=== PATIENT | male | born 1935 | race Caucasian/White ===

== ENCOUNTER 2025-05-28 17:54 | Inpatient (IN) ==
[2025-05-28 18:55] LABS: Basophils # (Auto) 0.03 K/mcL (0.00-0.30); Basophils % (Auto) 0.2 % (0.0-2.0); Eosinophils # (Auto) 0.03 K/mcL (0.00-0.70); Eosinophils % (Auto) 0.2 % (0.0-7.0); Hematocrit 33.4 % (40.1-51.0); Hemoglobin 10.9 g/dL (13.7-17.5); Lymphocytes # (Auto) 1.05 K/mcL (1.50-4.80); Lymphocytes % (Auto) 7.0 % (15.5-49.0); Mean Corpuscular HGB Conc 32.6 g/dL (31.0-36.0); Monocytes # (Auto) 0.73 K/mcL (0.10-0.90); Monocytes % (Auto) 4.9 % (1.0-12.0); Neutrophils % (Auto) 87.2 % (38.0-78.0); Platelet Count 318 K/mcL (140-440); RBC 3.44 M/mcL (4.63-6.08); WBC 15.0 K/mcL (4.5-11.0)
[2025-05-28] MEDS: ACETAMINOPHEN 325 MG TABLET PO ONE (19:00)
[2025-05-28] MEDS: 0.9 % SODIUM CHLORIDE 1,000 ML IV ONE (19:00)
[2025-05-28 19:11] LABS: ALT/SGPT 27 U/L (<40); AST/SGOT 24 U/L (<40); Albumin 3.6 gm/dL (3.2-5.2); Albumin/Globulin Ratio 1.1 (1.0-2.3); Alkaline Phosphatase 168 U/L (39-117); Anion Gap 13.0 (8.0-16.0); Bilirubin,Total 0.5 mg/dL (0.1-1.0); Blood Urea Nitrogen 21 mg/dL (8-23); Calcium 8.9 mg/dL (8.6-10.4); Carbon Dioxide 21 mmol/L (22-30); Chloride 101 mmol/L (96-108); Globulin 3.2 gm/dL (2.2-3.7); Glucose 133 mg/dL (70-105); Potassium 4.4 mmol/L (3.3-5.1); Sodium 135 mmol/L (133-145)
[2025-05-28] MEDS: cefTRIAXone 1 GM in DEXTROSE 5% IN WATER 50 ML IV SCH (19:20)
[2025-05-28 21:44] LABS: Bacteria,Urine Many /hpf (0); Bilirubin,Urine Negative (Negative); Color,Urine Red; Glucose,Urine (UA) Negative (Negative); Ketones,Urine Negative (Negative); Leukocyte Esterase,Urine Small /uL (Negative); PH,Urine 5.5 (5.0-9.0); Protein,Urine >=300 mg/dL (Negative); Specific Gravity,Urine 1.020 (1.000-1.035); Urobilinogen,Urine Normal
[2025-05-28] MEDS ORDERED: ONDANSETRON 4 MG/2 ML VIAL IV PRN (23:02)
[2025-05-28] MEDS ORDERED: IPRATROPIUM/ALBUTEROL 3 ML AMPUL.NEB NEB PRN (23:02)
[2025-05-29] MEDS: 0.9 % SODIUM CHLORIDE 1,000 ML IV SCH
[2025-05-29] MEDS: ACETAMINOPHEN 325 MG TABLET PO PRN ×2 (06:08→14:49)
[2025-05-29] MEDS ORDERED: POTASSIUM CHLORIDE 40 MEQ in DEXTROSE 5% IN WATER 500 ML IV PRN (07:59)
[2025-05-29] MEDS ORDERED: MAGNESIUM SULFATE 2 GM/50 ML BAG IV PRN (07:59)
[2025-05-29] MEDS ORDERED: POLYETHYLENE GLYCOL 3350 17 GM PACKET PO PRN (07:59)
[2025-05-29] MEDS ORDERED: SENNOSIDES 1 TABLET PO PRN (07:59)
[2025-05-29] MEDS ORDERED: POTASSIUM CHLORIDE 20 MEQ TABLET PO PRN ×2 (07:59)
[2025-05-29] MEDS ORDERED: METOCLOPRAMIDE 10 MG/2 ML VIAL IV PRN (07:59)
[2025-05-29] MEDS ORDERED: IPRATROPIUM/ALBUTEROL 3 ML AMPUL.NEB NEB PRN (07:59)
[2025-05-29] MEDS ORDERED: ONDANSETRON 4 MG/2 ML VIAL IV PRN (07:59)
[2025-05-29] MEDS: DOCUSATE SODIUM 100 MG CAPSULE PO SCH (08:57)
[2025-05-29] MEDS: OMEPRAZOLE 20 MG CAPSULE PO SCH (08:58)
[2025-05-29] MEDS: TAMSULOSIN 0.4 MG CAPSULE PO SCH (08:58)
[2025-05-29] MEDS: ENOXAPARIN 40 MG/0.4 ML SYRINGE SQ SCH (08:58)
[2025-05-29] MEDS: FINASTERIDE 5 MG TABLET PO SCH (08:58)
[2025-05-29] MEDS: ASPIRIN 81 MG TAB.CHEW PO SCH (08:58)
[2025-05-29] MEDS: cefTRIAXone 1 GM VIAL IV SCH (09:53)
[2025-05-29] MEDS: cefTRIAXone 1 GM VIAL IV ONE (11:00)
[2025-05-29] MEDS: 0.9 % SODIUM CHLORIDE 10 ML SYRINGE IV SCH (14:00)
[2025-05-29] MEDS: ATORVASTATIN 10 MG TABLET PO SCH (20:21)
[2025-05-30 06:41] LABS: Basophils # (Auto) 0.02 K/mcL (0.00-0.30); Basophils % (Auto) 0.3 % (0.0-2.0); Eosinophils # (Auto) 0.04 K/mcL (0.00-0.70); Eosinophils % (Auto) 0.6 % (0.0-7.0); Hematocrit 28.2 % (40.1-51.0); Hemoglobin 8.8 g/dL (13.7-17.5); Lymphocytes # (Auto) 0.79 K/mcL (1.50-4.80); Lymphocytes % (Auto) 11.9 % (15.5-49.0); Mean Corpuscular HGB Conc 31.2 g/dL (31.0-36.0); Monocytes # (Auto) 0.61 K/mcL (0.10-0.90); Monocytes % (Auto) 9.2 % (1.0-12.0); Neutrophils % (Auto) 77.7 % (38.0-78.0); Platelet Count 215 K/mcL (140-440); RBC 2.77 M/mcL (4.63-6.08); WBC 6.6 K/mcL (4.5-11.0)
[2025-05-30 06:46] LABS: ALT/SGPT 35 U/L (<40); AST/SGOT 33 U/L (<40); Albumin 2.9 gm/dL (3.2-5.2); Albumin/Globulin Ratio 1.1 (1.0-2.3); Alkaline Phosphatase 179 U/L (39-117); Anion Gap 11.0 (8.0-16.0); Bilirubin,Direct < 0.2 mg/dL (0-0.3); Bilirubin,Total 0.3 mg/dL (0.1-1.0); Blood Urea Nitrogen 20 mg/dL (8-23); Calcium 8.0 mg/dL (8.6-10.4); Carbon Dioxide 19 mmol/L (22-30); Chloride 104 mmol/L (96-108); Globulin 2.7 gm/dL (2.2-3.7); Glucose 93 mg/dL (70-105); Phosphorous 2.7 mg/dL (2.5-4.5); Potassium 4.0 mmol/L (3.3-5.1); Sodium 134 mmol/L (133-145); Triglycerides 70 mg/dL (<150); Uric Acid 4.4 mg/dL (2.5-8.0)
[2025-05-30] MEDS: cefTRIAXone 2 GM in DEXTROSE 5% IN WATER 50 ML IV SCH (10:28)
[2025-05-30] MEDS: CEFEPIME 2 GM VIAL IV SCH (15:11)
[2025-05-31 06:55] LABS: Basophils # (Auto) 0.02 K/mcL (0.00-0.30); Basophils % (Auto) 0.4 % (0.0-2.0); Eosinophils # (Auto) 0.21 K/mcL (0.00-0.70); Eosinophils % (Auto) 4.0 % (0.0-7.0); Hematocrit 26.2 % (40.1-51.0); Hemoglobin 8.5 g/dL (13.7-17.5); Lymphocytes # (Auto) 1.00 K/mcL (1.50-4.80); Lymphocytes % (Auto) 19.0 % (15.5-49.0); Mean Corpuscular HGB Conc 32.4 g/dL (31.0-36.0); Monocytes # (Auto) 0.68 K/mcL (0.10-0.90); Monocytes % (Auto) 12.9 % (1.0-12.0); Neutrophils % (Auto) 63.3 % (38.0-78.0); Platelet Count 249 K/mcL (140-440); RBC 2.66 M/mcL (4.63-6.08); WBC 5.3 K/mcL (4.5-11.0)
[2025-05-31 07:16] LABS: ALT/SGPT 43 U/L (<40); AST/SGOT 33 U/L (<40); Albumin 2.9 gm/dL (3.2-5.2); Albumin/Globulin Ratio 1.2 (1.0-2.3); Alkaline Phosphatase 216 U/L (39-117); Anion Gap 9.0 (8.0-16.0); Bilirubin,Direct < 0.2 mg/dL (0-0.3); Bilirubin,Total < 0.2 mg/dL (0.1-1.0); Blood Urea Nitrogen 21 mg/dL (8-23); Calcium 8.0 mg/dL (8.6-10.4); Carbon Dioxide 21 mmol/L (22-30); Chloride 105 mmol/L (96-108); Globulin 2.5 gm/dL (2.2-3.7); Glucose 92 mg/dL (70-105); Phosphorous 2.8 mg/dL (2.5-4.5); Potassium 3.7 mmol/L (3.3-5.1); Sodium 135 mmol/L (133-145); Triglycerides 77 mg/dL (<150); Uric Acid 4.0 mg/dL (2.5-8.0)
[2025-05-31] MEDS: LEVOFLOXACIN 750 MG/150 ML BAG IV SCH (10:06)
[2025-06-01 06:31] LABS: Basophils # (Auto) 0.02 K/mcL (0.00-0.30); Basophils % (Auto) 0.4 % (0.0-2.0); Eosinophils # (Auto) 0.33 K/mcL (0.00-0.70); Eosinophils % (Auto) 6.6 % (0.0-7.0); Hematocrit 28.0 % (40.1-51.0); Hemoglobin 9.0 g/dL (13.7-17.5); Lymphocytes # (Auto) 0.96 K/mcL (1.50-4.80); Lymphocytes % (Auto) 19.1 % (15.5-49.0); Mean Corpuscular HGB Conc 32.1 g/dL (31.0-36.0); Monocytes # (Auto) 0.65 K/mcL (0.10-0.90); Monocytes % (Auto) 12.9 % (1.0-12.0); Neutrophils % (Auto) 60.8 % (38.0-78.0); Platelet Count 225 K/mcL (140-440); RBC 2.88 M/mcL (4.63-6.08); WBC 5.0 K/mcL (4.5-11.0)
[2025-06-01 07:06] LABS: ALT/SGPT 41 U/L (<40); AST/SGOT 30 U/L (<40); Albumin 2.9 gm/dL (3.2-5.2); Albumin/Globulin Ratio 1.1 (1.0-2.3); Alkaline Phosphatase 206 U/L (39-117); Anion Gap 9.0 (8.0-16.0); Bilirubin,Direct < 0.2 mg/dL (0-0.3); Bilirubin,Total < 0.2 mg/dL (0.1-1.0); Blood Urea Nitrogen 19 mg/dL (8-23); Calcium 8.3 mg/dL (8.6-10.4); Carbon Dioxide 23 mmol/L (22-30); Chloride 105 mmol/L (96-108); Globulin 2.7 gm/dL (2.2-3.7); Glucose 89 mg/dL (70-105); Phosphorous 3.0 mg/dL (2.5-4.5); Potassium 4.0 mmol/L (3.3-5.1); Sodium 137 mmol/L (133-145); Triglycerides 65 mg/dL (<150); Uric Acid 3.5 mg/dL (2.5-8.0)
[2025-06-01] MEDS: LEVOFLOXACIN 750 MG TABLET PO SCH (10:26)
[2025-06-01 14:22] VITALS: TEMP 97.5; O2SAT 98
== END 2025-06-01 15:30 | DRG 872 ==
LOC: ED 17:54 → MEDSUR 23:25
PROVIDERS: ADMIT Internal Medicine; ATTEND Student in an Organized Health Care Education/Training Program